=== PATIENT | male | born 1965 | race Caucasian/White ===

== ENCOUNTER → 2019-04-20 | Outpatient (CLI) | payer OTHER ==
--- NOTE | 2019-04-20 11:49 | RADIOLOGY REPORT (SQ) ---
EXAM DESCRIPTION: WRIST BILATERAL 3 VIEWS COMPLETED DATE/TIME: 04/20/2019 9:56 am REASON FOR STUDY: BILATERAL WRIST PAIN ([id number]) COMPARISON: None. NUMBER OF VIEWS: Three views. TECHNIQUE: AP, lateral, and oblique radiographic images acquired of the right and left wrist. LIMITATIONS: None. FINDINGS: MINERALIZATION: Normal. BONES: No acute fracture or dislocation. No worrisome bone lesions. Normal alignment. No significant osteophytes. JOINTS: Mild joint space narrowing in the radiocarpal joints bilaterally. SOFT TISSUES: No swelling. No calcifications. OTHER: No other significant finding. IMPRESSION: Mild symmetric joint space narrowing in the radiocarpal joints. No other significant fi ndings. TECHNICAL DOCUMENTATION: JOB ID: [id number] [employer]- All Rights Reserved Reading location - IP/workstation name: [email or web address]
== END ==
LOC: RAD 09:20
PROVIDERS: ATTEND Nurse Practitioner Family
DX: M25.539 Pain in unspecified wrist (principal)

== ENCOUNTER 2019-10-29 10:41 | Emergency (ER) | payer OTHER ==
--- NOTE | 2019-10-29 12:05 | ER Document Report ---
ED Medical Screen (RME) - General Chief Complaint: Headache Stated Complaint: HEADACHE Time Seen by Provider: 10/29/19 12:03 Mode of Arrival: Ambulatory Information source: Patient Notes: 54-year-old male presented to ED for complaint of pain to the right side of his head to his eye to the back of his head. He states that he went to the [facility] and they sent him to the emergency room to get a CAT scan but did not give him an order for CAT scan. He states this is been going on for about 2 weeks and is getting worse. [facility]. He is alert oriented respirations regular nonlabored speaking in full sentences there is no tenderness to palpation and he has no other symptoms but this pain. I have greeted and performed a rapid initial assessment of this patient. A comprehensive ED assessment and evaluation of the patient, analysis of test results and completion of medical decision making process will be conducted by an additional ED providers. TRAVEL OUTSIDE OF THE [place] IN LAST 30 DAYS: No Physical Exam - Vital signs Vitals: Temp Pulse Resp BP Pulse Ox 98.0 F 82 16 131/99 H 97 10/29/19 11:19 10/29/19 11:19 10/29/19 11:19 10/29/19 11:19 10/29/19 11:19 Course - Vital Signs Vital signs: Temp Pulse Resp BP Pulse Ox 98.0 F 82 16 131/99 H 97 10/29/19 11:19 10/29/19 11:19 10/29/19 11:19 10/29/19 11:19 10/29/19 11:19
[2019-10-29 12:28] LABS: ABSOLUTE EOSINOPHILS # (AUTO) 0.1 10^3/uL (0.0-0.6); ABSOLUTE LYMPHOCYTES (AUTO) 1.2 10^3/uL (0.5-4.7); ABSOLUTE MONOCYTES (AUTO) 0.5 10^3/uL (0.1-1.4); ABSOLUTE NEUT (AUTO) 4.7 10^3/uL (1.7-8.2); BASOPHILS % (AUTO) 0.6 % (0-2); HEMATOCRIT 51.3 % (37.9-51.0); HEMOGLOBIN 17.4 g/dL (13.5-17.0); LYMPHOCYTES % (AUTO) 17.9 % (13-45); MEAN CORPUSCULAR HEMOGLOBIN 30.2 pg (27.0-33.4); MEAN CORPUSCULAR VOLUME 89 fl (80-97); MONOCYTES % (AUTO) 8.3 % (3-13); PLATELET COUNT 232 10^3/uL (150-450); RED BLOOD COUNT 5.78 10^6/uL (4.35-5.55); SEGMENTED NEUTROPHILS % (AUTO) 72.2 % (42-78); TOTAL CELLS COUNTED % (AUTO) 100 %; WHITE BLOOD COUNT 6.5 10^3/uL (4.0-10.5)
[2019-10-29 12:54] LABS: ALBUMIN 4.9 g/dL (3.5-5.0); ALKALINE PHOSPHATASE 76 U/L (38-126); ANION GAP 10 (5-19); ASPARTATE AMINO TRANSFERASE 26 U/L (17-59); BILIRUBIN,DIRECT 0.2 mg/dL (0.0-0.4); BILIRUBIN,TOTAL 0.8 mg/dL (0.2-1.3); BLOOD UREA NITROGEN 16 mg/dL (7-20); CALCIUM 10.2 mg/dL (8.4-10.2); CARBON DIOXIDE 29 mmol/L (22-30); CHLORIDE 102 mmol/L (98-107); GLUCOSE 124 mg/dL (75-110); POTASSIUM 4.8 mmol/L (3.6-5.0); TOTAL PROTEIN 8.1 g/dL (6.3-8.2)
--- NOTE | 2019-10-29 15:24 | RADIOLOGY REPORT (SQ) ---
EXAM DESCRIPTION: CT HEAD COMBO COMPLETED DATE/TIME: 10/29/2019 3:09 pm REASON FOR STUDY: Headache from right eye to the back of the head COMPARISON: CT orbits same date TECHNIQUE: Axial images acquired through the brain without and with intravenous contrast. Images re viewed with bone, brain and subdural windows. Additional sagittal and coronal reconstructions were g enerated. Images stored on PACS. All CT scanners at this facility use dose modulation, iterative reconstruction, and/or weight based d osing when appropriate to reduce radiation dose to as low as reasonably achievable (ALARA). [facility]: Dose Right [facility]: CareDose [facility]: Dose Right [facility]: Teradose 4D [facility]: H2HCare CONTRAST TYPE AND DOSE: contrast/concentration: Isovue 350.00 mg/ml; Total Contrast Delivered: 49.0 ml; Total Saline Delivered: 50.0 ml RENAL FUNCTION: Creatinine 0.9 RADIATION DOSE: CT Rad equipment meets quality standard of care and radiation dose reduction techniq ues were employed. CTDIvol: 6.0 - 53.2 mGy. DLP: 2215 mGy-cm.. LIMITATIONS: None. FINDINGS: VENTRICLES: Normal size and contour. CEREBRUM: No masses. No hemorrhage. No midline shift. Normal jacobo/white matter differentiation. No ev idence for acute infarction. No enhancing lesions. CEREBELLUM: No masses. No hemorrhage. No alteration of density. No evidence for acute infarction. No enhancing lesions. EXTRA-AXIAL SPACES: No fluid collections. No enhancing lesions. ORBITS AND GLOBE: No intra- or extraconal masses. Normal contour of globe without masses. CALVARIUM: No fracture. PARANASAL SINUSES: Bilateral maxillary sinus mucus or serous retention cysts. SOFT TISSUES: No mass or hematoma. OTHER: No other significant finding. IMPRESSION: NORMAL BRAIN CT WITHOUT AND WITH CONTRAST. EVIDENCE OF ACUTE STROKE: NO. TECHNICAL DOCUMENTATION: JOB ID: [id number] Quality ID # [id number]: Final reports with documentation of one or more dose reduction techniques (e.g., Au tomated exposure control, adjustment of the mA and/or kV according to patient size, use of iterative reconstruction technique) 2010 [employer]- All Rights Reserved Reading location - IP/workstation name: [email or web address]
--- NOTE | 2019-10-29 15:29 | RADIOLOGY REPORT (SQ) ---
EXAM DESCRIPTION: CT ORBIT/SELLA WITH COMPLETED DATE/TIME: 10/29/2019 3:09 pm REASON FOR STUDY: Headache from right eye to the back of the head COMPARISON: CT brain without and with contrast same date TECHNIQUE: Pre and post IV contrast images through the orbits windowed for bone and soft tissue. Ad ditional coronal and sagittal reconstructed images reviewed. All images stored on PACS. All CT scanners at this facility use dose modulation, iterative reconstruction, and/or weight based d osing when appropriate to reduce radiation dose to as low as reasonably achievable (ALARA). [facility]: Dose Right [facility]: CareDose [facility]: Dose Right [facility]: Teradose 4D [facility]: AgBiome CONTRAST TYPE AND DOSE: 49 mL of IV Omnipaque 350- low osmolar. RENAL FUNCTION: Creatinine 0.9 RADIATION DOSE: 106 mGy . LIMITATIONS: None. FINDINGS: FACIAL BONES: No fracture or bone lesion. ORBITS: Intact. No fracture. Symmetric intact globes and retroorbital soft tissues. No masses or e nhancement in the orbits or globes. PARANASAL SINUSES: Mucus or serous retention cyst in the right and left maxillary sinus. No air-flui d levels worrisome for acute sinusitis SOFT TISSUES: No mass or edema. No abnormal enhancement. No CT evidence of acute sinusitis. INFERIOR BRAIN: Limited view. No acute findings. OTHER: No other significant finding. IMPRESSION: Mild inflammatory changes in the maxillary sinuses. Otherwise unremarkable CT of the or bits and facial bones without and with contrast TECHNICAL DOCUMENTATION: JOB ID: [id number] Quality ID # [id number]: Final reports with documentation of one or more dose reduction techniques (e.g., Au tomated exposure control, adjustment of the mA and/or kV according to patient size, use of iterative reconstruction technique) 2010 [employer]- All Rights Reserved Reading location - IP/workstation name: [email or web address]
--- NOTE | 2019-10-29 16:45 | ER Document Report ---
ED Headache - General Chief Complaint: Headache Stated Complaint: HEADACHE Time Seen by Provider: 10/29/19 12:03 Primary Care Provider: MARYLIN ODEN [Primary Care Provider] - Follow up in 3-5 days Mode of Arrival: Ambulatory Notes: Patient is a 54-year-old male who presents to the emergency department with a chief complaint of a headache. He has had his headache for the past 2 weeks. States that is on the right side of his head. Patient denies any weakness, numbness or tingling, facial droop, or any other symptoms. Patient was seen by his primary care provider and he was supposed to have a CT done, but it was not ordered, therefore he came to the emergency department. TRAVEL OUTSIDE OF THE [place] IN LAST 30 DAYS: No Past Medical History - General Information source: Patient - Social History Smoking Status: Unknown if Ever Smoked Frequency of alcohol use: None Drug Abuse: None Family History: Reviewed & Not Pertinent Patient has suicidal ideation: No Patient has homicidal ideation: No Review of Systems - Review of Systems Notes: REVIEW OF SYSTEMS: CONSTITUTIONAL : Denies recent illness. Denies recent unintentional weight loss. Denies fever, chills, or sweats. EENT: Denies eye, ear, throat, or mouth pain, discharge, or symptoms. See HPI. CARDIOVASCULAR: Denies chest pain. RESPIRATORY: Denies shortness of breath, cough, congestion, difficulty breathing, or wheezing. GASTROINTESTINAL: Denies nausea, vomiting, and diarrhea. Denies abdominal pain. Denies constipation. GENITOURINARY: Denies difficulty urinating, burning, blood in urine, urgency or frequency. MUSCULOSKELETAL: Denies neck and back pain. Denies joint pain or swelling. SKIN: Denies rash, itchiness, or lesions HEMATOLOGIC : Denies easy bruising or bleeding. LYMPHATIC: Denies swollen, painful, enlarged glands. NEUROLOGICAL: See HPI. PSYCHIATRIC: Denies stress, anxiety, alteration in sleep patterns, or depression. All other systems reviewed and negative. Physical Exam - Vital signs Vitals: Temp Pulse Resp BP Pulse Ox 98.0 F 82 16 131/99 H 97 10/29/19 11:19 10/29/19 11:19 10/29/19 11:19 10/29/19 11:19 10/29/19 11:19 - Notes Notes: PHYSICAL EXAMINATION: GENERAL: Appears well, healthy, well-nourished, no acute distress. HEAD: Normocephalic, atraumatic. EYES: PERRL, conjunctiva normal, all extraocular movements intact, sclera nonicteric ENT: Moist mucous membranes. Tenderness noted to bilateral maxillary sinuses. Edema and erythema noted to nasal mucosa. NECK: Supple, no noticeable swelling, redness, rash. Normal range of motion. LUNGS: Equal breath sounds bilaterally and clear to auscultation. No wheezes rales or rhonchi. CARDIOVASCULAR: S1-S2, regular rate, regular rhythm. Radial pulses 2+, normal. ABDOMEN: Normoactive bowel sounds. Soft, nontender, no guarding, no rebound tenderness, and no masses palpated. EXTREMITIES: Normal strength and range of motion, no pitting or edema. No cyanosis. NEUROLOGICAL: Moves all extremities upon command. Strength 5/5 in all extremities. PSYCH: Normal mood, normal affect. SKIN: Warm, dry. No rash, lesions, ulcerations noted. Normal skin turgor. Course - Re-evaluation Re-evalutation: Hematology is unremarkable. Chemistries are also unremarkable. CT ordered in triage shows that there is no intracranial mass, hemorrhage, or other life- threatening findings noted. Orbit CT does not show evidence of post orbital cellulitis. No periorbital cellulitis noted. He has bilateral maxillary sinus mucus noted. I suspect the patient is having a sinus headache. He will be lena josse on Augmentin. Discussed this with the patient. He will follow-up with his primary care provider across this visit. He is in agreement with this plan. Follow-up precautions were given. Verbal discharge instructions were given to the patient. They verbalized understanding. They are stable for discharge. - Vital Signs Vital signs: Temp Pulse Resp BP Pulse Ox 98.0 F 77 16 117/88 H 100 10/29/19 17:10 10/29/19 17:10 10/29/19 17:10 10/29/19 17:10 10/29/19 17:10 - Laboratory Result Diagrams: 10/29/19 12:15 10/29/19 12:15 Laboratory results interpreted by me: 10/29/19 10/29/19 12:15 12:15 RBC 5.78 H Hgb 17.4 H Hct 51.3 H Glucose 124 H Discharge - Discharge Clinical Impression: Sinus headache Sinusitis Qualifiers: Sinusitis location: maxillary Chronicity: acute Recurrence: non-recurrent Qualified Code(s): J01.00 - Acute maxillary sinusitis, unspecified Condition: Stable Disposition: HOME, SELF-CARE Additional Instructions: You are seen today in the emergency department for a headache. You have a sinus infection. You are being placed on Augmentin, medication to help with your sinus infection. Please continue Flonase at home. You can use 2 sprays to each nostril daily. Follow-up with your primary care provider regards to this visit. Prescriptions: Amoxicillin/Potassium Clav [Augmentin 500-125 Tablet] 1 each PO BID #20 tablet [facility]errals: [facility] [[facility] - Follow up in 3-5 days
[2019-10-29 17:12] VITALS: BP 117/88
== END 2019-10-29 17:10 | disposition home or self-care (01) ==
LOC: ER 10:41
DX: J01.00 Acute maxillary sinusitis, unspecified (principal); R51 Headache
CPT/HCPCS: 36415; 70470; 70481; 80053; 85025; 99284